=== PATIENT | female | born 1975 | race African-American/Black ===

== ENCOUNTER 2016-11-01 09:39 | Emergency (ER) | payer OTHER, MEDICAID ==
[~2016-11-01] VITALS: Ht 170.2 cm; Wt 91.0 kg
[~2016-11-01 09:39] MED LIST: AMLO10TA4; HYDR25TA
[2016-11-01] MEDS ORDERED: DIAZEPAM 5 MG TABLET PO ONE (10:15)
[2016-11-01 10:20] LABS: BASOPHILS % 0.7 % (0.0-2.0); EOSINOPHILS % 0.2 % (0.0-5.0); HEMOGLOBIN. 11.6 g/dL (12.0-16.0); LYMPHOCYTES % 16.3 % (20.0-50.0); MEAN CORPUSCULAR HEMOGLOBIN 26.6 pg (28.0-32.0); MEAN CORPUSCULAR HGB CONC 33.2 g/dL (31.0-37.0); MEAN CORPUSCULAR VOLUME 80.1 fL (81.0-99.0); MEAN PLATELET VOLUME 7.7 fl (7.4-10.4); MONOCYTES % 7.6 % (2.0-8.0); NEUTROPHILS % 75.2 % (40.0-76.0); PLATELET 330 x1000/uL (130-400); RED BLOOD CELL COUNT 4.37 mill/uL (4.2-5.4); RED CELL DISTRIBUTION WIDTH 18.7 % (11.6-14.6); WHITE BLOOD COUNT 10.2 x1000/uL (4.5-11.0)
[2016-11-01 10:26] LABS: CHLORIDE 107 mEq/L (98-107); INDEX HEMOLYSI 1 (1-3); INDEX ICTERIC 1 (1-4); INDEX LIPEMIC 1 (1-3)
[2016-11-01 10:28] LABS: HCG SCREEN NEGATIVE
[2016-11-01 10:29] LABS: ANION GAP 14; CALCIUM 8.8 mg/dL (8.5-10.1); CARBON DIOXIDE 23 mEq/L (21-32); UREA NITROGEN BLOOD 8 mg/dL (7-21)
[2016-11-01 10:32] LABS: eGFR > 60 mL/min (>60)
[2016-11-01] MEDS ORDERED: KETOROLAC 60MG/2ML VIAL IM ONE (11:45)
[2016-11-01 12:16] VITALS: BP 145/94
== END 2016-11-01 12:40 | disposition home or self-care (01) ==
LOC: ER 10:56
DX: J06.9 Acute upper respiratory infection, unspecified (principal); I10 Essential (primary) hypertension; D64.9 Anemia, unspecified; S16.1XXA Strain of muscle, fascia and tendon at neck level, initial encounter; X58.XXXA Exposure to other specified factors, initial encounter; Y93.9 Activity, unspecified; Y92.9 Unspecified place or not applicable; Z88.0 Allergy status to penicillin; Z88.8 Allergy status to other drugs, medicaments and biological substances
CPT/HCPCS: 36415; 71010; 80048; 81025; 84703; 85025; 96372; 99285; J1885; Z7610

== ENCOUNTER 2017-08-01 02:35 | Emergency (ER) | payer OTHER, MEDICAID ==
[~2017-08-01] VITALS: Ht 177.8 cm; Wt 91.0 kg
[2017-08-01] MEDS ORDERED: ONDANSETRON HCL 4MG/2ML VIAL IV STA (06:35)
[2017-08-01] MEDS ORDERED: SODIUM CHLORIDE 0.9% 1,000 ML IV ONE (06:35)
[2017-08-01 07:09] LABS: BASOPHILS % 0.6 % (0.0-2.0); EOSINOPHILS % 0.2 % (0.0-5.0); HEMATOCRIT. 31.7 % (36.0-48.0); HEMOGLOBIN. 10.2 g/dL (12.0-16.0); LYMPHOCYTES % 7.7 % (20.0-50.0); MEAN CORPUSCULAR HEMOGLOBIN 26.3 pg (28.0-32.0); MEAN CORPUSCULAR VOLUME 81.3 fL (81.0-99.0); MEAN PLATELET VOLUME 7.5 fl (7.4-10.4); MONOCYTES % 5.6 % (2.0-8.0); NEUTROPHILS % 85.9 % (40.0-76.0); PLATELET 391 x1000/uL (130-400); RED CELL DISTRIBUTION WIDTH 14.9 % (11.6-14.6)
[2017-08-01 07:13] LABS: INR 1.1
[2017-08-01 07:18] LABS: HCG SCREEN NEGATIVE
[2017-08-01 07:22] LABS: CARBON DIOXIDE 24 mEq/L (21-32); CHLORIDE 105 mEq/L (98-107)
[2017-08-01] MEDS ORDERED: IBUPROFEN 600MG TABLET PO ONE (08:15)
[2017-08-01 08:49] LABS: CLARITY URINE CLOUDY (CLEAR); COLOR URINE YELLOW (YELLOW); KETONES URINE 1+ (NEGATIVE); LEUKOCYTE ESTERASE URINE NEGATIVE (NEGATIVE); NITRITE URINE NEGATIVE (NEGATIVE); OCCULT BLOOD URINE NEGATIVE (NEGATIVE); PROTEIN URINE NEGATIVE (NEGATIVE); SPECIFIC GRAVITY URINE 1.018 (1.005-1.030)
[2017-08-01 09:56] VITALS: BP 126/78
== END 2017-08-01 09:59 | disposition home or self-care (01) ==
LOC: ER 02:35
DX: R11.2 Nausea with vomiting, unspecified (principal); R19.7 Diarrhea, unspecified; D64.9 Anemia, unspecified; F17.210 Nicotine dependence, cigarettes, uncomplicated; I10 Essential (primary) hypertension; Z88.0 Allergy status to penicillin; Z88.8 Allergy status to other drugs, medicaments and biological substances; Z90.89 Acquired absence of other organs
CPT/HCPCS: 36415; 80053; 81001; 83690; 84703; 85025; 85610; 87804; 96361; 96374; 99285; J2405; J7030; Z7610

== ENCOUNTER 2021-12-18 12:53 | Emergency (ER) | payer MEDICAID, OTHER ==
[~2021-12-18] VITALS: Ht 172.7 cm; Wt 90.0 kg
[2021-12-18 13:07] VITALS: BP 180/100
[2021-12-18] MEDS ORDERED: METOCLOPRAMIDE HCL 10MG/2ML VIAL IV ONE (14:30)
[2021-12-18] MEDS ORDERED: SODIUM CHLORIDE 0.9% 1,000 ML IV ONE (14:30)
[2021-12-18 15:03] LABS: CLARITY URINE CLEAR (CLEAR); COLOR URINE YELLOW (YELLOW); KETONES URINE TRACE (NEGATIVE); LEUKOCYTE ESTERASE URINE NEGATIVE (NEGATIVE); NITRITE URINE NEGATIVE (NEGATIVE); OCCULT BLOOD URINE 3+ (NEGATIVE); PH URINE 7.5 (4.5-8.0); PROTEIN URINE NEGATIVE (NEGATIVE); SPECIFIC GRAVITY URINE 1.008 (1.005-1.030); UROBILINOGEN URINE 0.2 E.U./dL (0.2-1.0)
[2021-12-18 15:09] LABS: BASOPHILS % 1.4 % (0.0-2.0); EOSINOPHILS % 1.2 % (0.0-5.0); HEMATOCRIT. 35.1 % (36.0-48.0); LYMPHOCYTES % 16.6 % (20.0-50.0); MEAN CORPUSCULAR HEMOGLOBIN 24.2 pg (28.0-32.0); MEAN CORPUSCULAR VOLUME 77.1 fL (81.0-99.0); MONOCYTES % 7.3 % (2.0-8.0); NEUTROPHILS % 73.5 % (40.0-76.0); PLATELET 460 x1000/uL (130-400); RED BLOOD CELL COUNT 4.55 mill/uL (4.2-5.4); RED CELL DISTRIBUTION WIDTH 16.2 % (11.6-14.6)
[2021-12-18 15:16] LABS: CHLORIDE 108 mEq/L (98-107)
[2021-12-18 15:30] LABS: HCG SCREEN NEGATIVE
== END 2021-12-18 18:11 | disposition home or self-care (01) ==
LOC: ER 13:11
DX: I10 Essential (primary) hypertension (principal); R51.9 Headache, unspecified; D64.9 Anemia, unspecified; Z90.49 Acquired absence of other specified parts of digestive tract; Z88.0 Allergy status to penicillin
CPT/HCPCS: 36415; 70450; 71045; 74176; 80053; 81003; 84484; 84703; 85025; 93005; 96361; 96374; 99285; J2765; J7030

== ENCOUNTER 2024-08-11 07:26 | Emergency (ER) | payer OTHER ==
[~2024-08-11] VITALS: Ht 170.2 cm; Wt 100.0 kg
[2024-08-11 07:29] VITALS: O2SAT 99
[2024-08-11] MEDS ORDERED: KETOROLAC 30MG/ML VIAL IV STA (07:32)
[2024-08-11] MEDS ORDERED: SODIUM CHLORIDE 0.9% 1,000 ML IV ONE (07:45)
[2024-08-11 08:14] LABS: CHLORIDE 107 mEq/L (98-107); POTASSIUM 3.9 mEq/L (3.5-5.1); SODIUM 138 mEq/L (136-145)
[2024-08-11 08:15] LABS: CALCIUM 9.3 mg/dL (8.7-10.4); CARBON DIOXIDE 24 mEq/L (21-32)
[2024-08-11 08:20] LABS: CREATININE 0.8 mg/dL (0.6-1.0); GLUCOSE 111 mg/dL (70-105); UREA NITROGEN BLOOD 5 mg/dL (9-23)
[2024-08-11 08:29] LABS: HCG SCREEN NEGATIVE
[2024-08-11 08:30] LABS: D-DIMER 0.59 mg/L FEU (<0.50); PROTHROMBIN TIME 10.9 sec (9.6-11.0); TROPONIN I HIGH SENSITIVITY < 4 ng/L (3.0-34)
[2024-08-11 08:32] LABS: HEMATOCRIT. 42.8 % (36.0-48.0); HEMOGLOBIN. 14.3 g/dL (12.0-16.0); MEAN CORPUSCULAR HEMOGLOBIN 31.2 pg (28.0-32.0); MEAN CORPUSCULAR HGB CONC 33.4 g/dL (31.0-37.0); MEAN CORPUSCULAR VOLUME 93.4 fL (81.0-99.0); RED BLOOD CELL COUNT 4.59 mill/uL (4.2-5.4); RED CELL DISTRIBUTION WIDTH 13.9 % (11.6-14.6)
[2024-08-11 08:55] LABS: DIFFERENTIAL COMMENT 1
[2024-08-11 10:10] LABS: PLATELET 213 x1000/uL (130-400); PLATELET ESTIMATE NORMAL
[2024-08-11 12:31] LABS: TROPONIN I HIGH SENSITIVITY < 4 ng/L (3.0-34)
[2024-08-11] MEDS ORDERED: ALBU18HF2 IH (12:40)
[2024-08-11] MEDS: SODIUM CHLORIDE 0.9% 1,000 ML IV ONE (14:05)
[2024-08-11] MEDS: KETOROLAC 15MG/ML VIAL IV ONE (14:05)
[2024-08-11 15:15] VITALS: BP 143/76; PULSE 88; RESP 18; TEMP 37.05852; O2SAT 98
== END 2024-08-11 15:15 | disposition home or self-care (01) ==
LOC: ER 07:42
DX: J20.9 Acute bronchitis, unspecified (principal); I10 Essential (primary) hypertension; F10.90 Alcohol use, unspecified, uncomplicated; Z79.899 Other long term (current) drug therapy; Z88.0 Allergy status to penicillin; Z88.8 Allergy status to other drugs, medicaments and biological substances; Z90.49 Acquired absence of other specified parts of digestive tract; Y90.9 Presence of alcohol in blood, level not specified
CPT/HCPCS: 99285; 96374; 71045; 96361; 80048; 84703; 83880; 85025; 85379; 85610; 84484; 87804 ×2; 36415; 93005; J1885; J7030